=== PATIENT | male | born 1960 | race Caucasian/White ===

== ENCOUNTER 2017-11-23 15:29 | Emergency (ER) | payer BC ==
[2017-11-23 15:46] VITALS: TEMP 98.8
--- NOTE | 2017-11-23 15:48 | ED.PDOC ---
History of Present Illness - General Chief Complaint: Trauma Stated Complaint: L ribs, L hip, L wrist discomfort Time Seen by Provider: 11/23/17 15:44 Source: patient Exam Limitations: no limitations - History of Present Illness Initial Comments: patient comes in today for pain and swelling in his left hip, over the left rib cage, and left wrist. Patient stated he was sitting on a parked truck on the tailgate and fell off landing on his left side. At that time he was sore but didn't feel like he really injured anything. He was immediately able to get up and walk around as he sat still for some time he started to get more sore. After that he realized his left leg was extremely swollen and he got very scared that there is something really wrong. Additionally his rib cage started hurting more as well. He had not had any alcohol but he does routinely take hydrocodone for chronic back pain and his last dose was at 1 PM. Patient is otherwise healthy and has no other medical problems. Timing/Duration: 1-3 hours Severity: moderate Improving Factors: rest Worsening Factors: movement Associated Symptoms: denies symptoms Allergies/Adverse Reactions: Allergies NO KNOWN ALLERGY Allergy (Verified 11/23/17 15:33) Home Medications: Ambulatory Orders HYDROcodone 10MG/APAP 325MG [[place] 10/325] 1 tab PO Q4H 11/23/17 Review of Systems - Review of Systems Constitutional: States: no symptoms reported. Denies: chills, fever EENTM: States: no symptoms reported Respiratory: States: no symptoms reported Cardiology: States: no symptoms reported. Denies: chest pain Gastrointestinal/Abdominal: States: no symptoms reported. Denies: abdominal pain, nausea, vomiting Musculoskeletal: States: see HPI Family Medical History - Family History Father Family History: No Known Living Status: Still Living Physical Exam - Physical Exam General Appearance: No apparent distress Ears, Nose, Throat: hearing grossly normal Neck: non-tender, full range of motion, supple, normal inspection Respiratory: chest non-tender, lungs clear, normal breath sounds, no respiratory distress Cardiovascular/Chest: normal peripheral pulses, regular rate, rhythm, no edema, no gallop, no JVD, no murmur, other - tender to palpation at rib 6 and 7 without crepitus or ecchymosis Peripheral Pulses: radial,right: 2+, radial,left: 2+, femoral,left: 2+, popliteal,left: 2+, posterior tibialis,left: 2+ Gastrointestinal/Abdominal: normal bowel sounds, non tender, soft, no organomegaly Back Exam: normal inspection, no CVA tenderness, no vertebral tenderness Extremity: other - large hematoma over the left upper thigh with full range of motion at the hip normal sensation and good distal pulse. Left wrist has noted swelling or ecchymosis deformity Progress - Progress Progress: 11/23/17 17:20 Xrays of ribs, wrist, and leg are all normal Departure - Departure Clinical Impression: Hematoma of thigh Qualifiers: Encounter type: initial encounter Laterality: left Qualified Code(s): S70.12XA - Contusion of left thigh, initial encounter Contusion of rib Qualifiers: Encounter type: initial encounter Laterality: left Qualified Code(s): S20.212A - Contusion of left front wall of thorax, initial encounter Disposition: Discharge to Home or Self Care Condition: Good Departure Forms: ED Discharge - Pt. Copy, Patient Portal Self Enrollment Instructions: DI for Trauma Activity: increase activity as tolerated Home Medications: Ambulatory Orders HYDROcodone 10MG/APAP 325MG [[place] 10/325] 1 tab PO Q4H 11/23/17 Additional Instructions: follow-up with PCP in 3-4 days if pain persists. Return to emergency room for increasing swelling or pain. With the counter Tylenol and Motrin for discomfort and ice to the area
--- NOTE | 2017-11-23 17:04 | RAD ---
EXAM DESCRIPTION: Ribs,Left 2 Views CLINICAL HISTORY:57 years Male, fall Comparison: None FINDINGS: No focal lung consolidation. No pleural effusion. No pneumothorax. Cardiac and mediastinal silhouette is unremarkable. No acute osseous abnormality. Soft tissues are unremarkable. IMPRESSION: No radiographic evidence of rib fracture. Electronically signed by: Alberto Kenyon MD 11/23/2017 5:03 PM CDT
--- NOTE | 2017-11-23 17:04 | RAD ---
EXAM DESCRIPTION: Hip,Left 2 Views (accession [id number]), Wrist,Left 2 Views (accession [id number]) CLINICAL HISTORY: 57 years Male, fall COMPARISON: None. FINDINGS: Left hip: No fracture or dislocation. Soft tissues are unremarkable. 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 No acute fracture or dislocation. IMPRESSION: No acute abnormality within the left hip and left wrist. Electronically signed by: Alberto Kenyon MD 11/23/2017 5:03 PM CDT
--- NOTE | 2017-11-23 17:04 | RAD ---
EXAM DESCRIPTION: Hip,Left 2 Views (accession [id number]), Wrist,Left 2 Views (accession [id number]) CLINICAL HISTORY: 57 years Male, fall COMPARISON: None. FINDINGS: Left hip: No fracture or dislocation. Soft tissues are unremarkable. 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 No acute fracture or dislocation. IMPRESSION: No acute abnormality within the left hip and left wrist. Electronically signed by: Alberto Kenyon MD 11/23/2017 5:03 PM CDT
[2017-11-23] MEDS ORDERED: HYDROcodone 10MG/APAP 325MG 1 EA TAB PO ONE (17:54)
--- NOTE | 2017-11-23 19:07 | CT ---
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 This exam was performed according to our departmental dose-optimization program, which includes automated exposure control, adjustment of the mA and/or kV according to patient size and/or use of iterative reconstruction technique. FINDINGS: No fracture. No dislocation. Marked soft tissue infiltration within the left lateral thigh soft tissues with a hyperdense collection measuring 10.0 x 6.4 cm representing a large hematoma. Electronically signed by: Alberto Kenyon MD 11/23/2017 7:05 PM CDT
[2017-11-23] MEDS ORDERED: ACETAMINOPHEN W/COD #3 TAB (ER Disp) PO ONE (21:14)
[2017-11-23 22:06] VITALS: BP 142/99; O2SAT 96
== END 2017-11-23 21:30 | disposition home or self-care (01) ==
LOC: ER 15:29
DX: S20.212A Contusion of left front wall of thorax, initial encounter (principal); S70.12XA Contusion of left thigh, initial encounter; S60.212A Contusion of left wrist, initial encounter; G89.29 Other chronic pain; M54.9 Dorsalgia, unspecified; Z79.891 Long term (current) use of opiate analgesic; W17.89XA Other fall from one level to another, initial encounter; Y92.9 Unspecified place or not applicable